=== PATIENT | female | born 1990 | race Caucasian/White ===

== ENCOUNTER 2019-10-18 13:48 | Emergency (ER) | payer OTHER ==
[~2019-10-18] VITALS: Ht 165.1 cm; Wt 79.5 kg
[2019-10-18 13:48] VITALS: Ht 165.1 cm; Wt 79.5 kg
[2019-10-18] MEDS ORDERED: TRAZODONE HCL150 MG PO (14:10)
[2019-10-18] MEDS ORDERED: PROPOXYPHENE (14:11)
[2019-10-18 14:36] LABS: BASOPHILS 1.7 % (0-2); EOSINOPHILS 6.4 % (0-7); HEMATOCRIT 36.4 % (36.0-48.0); HEMOGLOBIN 11.3 g/dL (12-16); LYMPHOCYTES 48.1 % (15-50); MCH 26.9 pg (26.0-34.0); MCV 86.7 fL (80.0-100.0); MEAN PLATELET VOLUME 9.5 fL (7.4-10.4); MONOCYTES 9.4 % (2-11); NEUTROPHILS 34.4 % (40-80); PLATELET COUNT 261 10x3/uL (130-400); RDW 16.9 % (11.5-14.5); WBC 4.2 10x3/uL (4.8-10.8)
[2019-10-18 14:40] LABS: BILIRUBIN NEGATIVE (NEGATIVE); GLUCOSE NEGATIVE (NEGATIVE); KETONE NEGATIVE (NEGATIVE); NITRITE NEGATIVE (NEGATIVE); SPECIFIC GRAVITY 1.005 (1.005-1.020); UROBILINOGEN NORMAL (NORMAL)
[2019-10-18 14:41] LABS: HCG URINE NEGATIVE (NEGATIVE)
[2019-10-18 14:48] LABS: UDS - AMPHET NEGATIVE QUAL (NEGATIVE); UDS - BARB NEGATIVE QUAL (NEGATIVE); UDS - BENZO NEGATIVE QUAL (NEGATIVE); UDS - COCAINE NEGATIVE QUAL (NEGATIVE); UDS - OPIATE NEGATIVE QUAL (NEGATIVE); UDS - PCP NEGATIVE QUAL (NEGATIVE); UDS - THC NEGATIVE QUAL (NEGATIVE)
[2019-10-18 15:06] LABS: CALC OSMOLALITY 284 mosm/kg (275-300); CALCIUM 8.1 mg/dL (8.5-10.1); CHLORIDE - SERUM 107 mmol/L (98-107); CREATININE - SERUM 0.9 mg/dL (0.6-1.3); GLUCOSE 107 mg/dL (74-106); POTASSIUM - SERUM 3.7 mmol/L (3.5-5.1); SODIUM 143 mmol/L (136-145); UREA NITROGEN 13 mg/dL (7-18); eGFR NON AFRICAN AMERICAN 80 mL/min (90-120)
[2019-10-18 15:18] LABS: ALBUMIN 3.4 g/dL (3.4-5.0); ALKALINE PHOSPHATASE 72 U/L (30-120); ALT (SGPT) 23 U/L (10-68); BILIRUBIN - TOTAL 0.15 mg/dL (0.2-1.3); MAGNESIUM - SERUM 1.9 mg/dL (1.8-2.4); PROTEIN - SERUM 7.2 g/dL (6.4-8.2)
--- NOTE | 2019-10-19 02:59 | NUR ---
PT BLOOD ALCOHOL LEVEL WAS 239 AT 0100. WILL PERFORM SUICIDE ASSESSMENT WHEN BLOOD ALCOHOL IS LESS THAN 100. HER NEXT SCHEDULED DRAW IS AT 0600.
--- NOTE | 2019-10-19 10:02 | NUR ---
According to the suicide assessment the patient scores high and requires a 1:1 observation. A suicide resource flyer and safety plan provided to the patient.
[2019-10-19 14:20] VITALS: BP 148/89
== END 2019-10-19 14:21 ==
LOC: D.ER 13:48
PROVIDERS: Family Medicine
DX: F10.129 Alcohol abuse with intoxication, unspecified (principal); Y90.8 Blood alcohol level of 240 mg/100 ml or more; R45.851 Suicidal ideations